=== PATIENT | female | born 1945 | race Caucasian/White ===

== ENCOUNTER → 2018-11-18 | Outpatient (CLI) | payer MEDICARE, BC ==
[2015-08-16 13:50] VITALS: BMI 30.9
[~2018-11-18] MED LIST: ACET-2043 PO; ASCO-182 PO; ASPI-1471 PO; ASPI-757 PO; ATOR20TA65 PO; ATR10 PO; CALC-864 PO; CIP500 PO; ESOM40CA42 PO; HYDR-3140 PO; HYDR-318 PO; MULT-1372 PO; OND4 PO; POLY17PO25 PO; RANI-366 PO; [UNRECOGNIZED DRUG - CODE] PO
--- NOTE | 2018-11-18 19:00 | RADIOLOGY IMAGING REPORT ---
FACILITY: [facility] [place] PATIENT NAME: DANIEL DOYLE : [id number] MR: [id number] V: [id number] EXAM DATE: [id number] ORDERING PHYSICIAN: JOHN NULL TECHNOLOGIST: Aditi Adam PROCEDURE:BILATERAL DIGITAL SCREENING MAMMOGRAM WITH CAD ASSISTED INTERPRETATION & 3D TOMOSYNTHESIS COMPARISON:Prior mammograms 09/01/2017 back to 07/19/2014. INDICATIONS:screening FINDINGS: Scattered fibroglandular tissue. There are no mass lesions, architectural distortions or any clustering of suspicious microcalcifications. No interval change when compared to the previous studies. DIAGNOSTIC CATEGORY 1--NEGATIVE. RECOMMENDATIONS: ROUTINE MAMMOGRAM AND CLINICAL EVALUATION. IMPRESSION: BIRADS 1: Negative. Dictated by: Wisam Florentino M.D. on 11/18/2018 at 15:26 Transcribed by: JOY on 11/18/2018 at 15:32 Approved by: Wisam Florentino M.D. on 11/18/2018 at 18:59 [facility]
== END ==
LOC: MAMO 01:34
PROVIDERS: ATTEND Physician Assistant
DX: Z12.31 Encounter for screening mammogram for malignant neoplasm of breast (principal)
CPT/HCPCS: 77063; 77067